=== PATIENT | male | born 1965 | race Caucasian/White ===

== ENCOUNTER 2024-12-17 11:46 | Emergency (ER) | payer OTHER, SELFPAY ==
[2024-12-17 11:52] VITALS: BP 149/79; PULSE 94; TEMP 37.3; O2SAT 97; BMI 25.8
--- NOTE | 2024-12-17 12:29 | XR_ITS ---
[facility] [place] [id number] Patient Name: MARGARITO STEPHENS MRN: [id number] date: 1965 Sex: M Assigned Patient Location: ER Current Patient Location: ED.MAIN Accession/Order Number: [id number] Exam Date: 12/17/2024 12:25 Report Date: 12/17/2024 12:52 At the request of: VIDHYA MEMBRENO Procedure: XR wrist RT min 3V RIGHT WRIST - 3 views COMPARISON: None CLINICAL DATA: Right wrist pain radiating to the thumb for the past few days. No injury. AP, lateral and oblique views were obtained. There is no acute fracture or dislocation. There is minor degenerative change at the first carpal metacarpal joint. No soft tissue swelling is seen. There is atherosclerotic disease involving vessels along the volar aspect of the distal forearm and wrist. XR/XR wrist RT min 3V IMPRESSION: NO ACUTE BONY FINDINGS. Impression dictated by: Arabella Farmer M.D. 12/17/2024 12:52 PM Dictation Location: [place] Electronically authenticated by: [id number] Y Date: 12/17/2024 12:52
[2024-12-17] MEDS: PIPERACILLIN SODIUM/TAZOBACTAM 4.5 GM in 0.9 % SODIUM CHLORIDE 50 ML IV (12:34)
--- NOTE | 2024-12-17 12:34 | ED_ITS ---
HPI - Extremity Problem General Chief complaint: Extremity Problem, Nontraumatic Stated complaint: POST OP COMPLICATION REDNESS Time Seen by Provider: 12/17/24 11:57 Source: patient Mode of arrival: walk-in Limitations: no limitations History of Present Illness HPI Narrative: 59-year-old male with history of insulin-dependent type 2 diabetes presents to the ED for right wrist pain. He underwent carpal tunnel surgery in May of this year without complications. He reports that two days ago, while lying in bed, he developed an achy pain in his right wrist rated 6/10, which has persisted. He also noticed redness in the area, which appears to be progressing proximally. He did states it was worse yesterday, the redness has decreased in size since yesterday. He denies pain at the surgical site, pain in the hand or fingers, or any history of trauma, insect bite, or abrasion. He has mild swelling localized to the anterior wrist but no swelling of the fingers. He is able to move his fingers through full ROM. He has not taken medication for pain. No fever, chills, or systemic symptoms reported. He contacted his surgeon?s office today but was referred to the ED for further evaluation. I have reviewed the past medical, family, and social history sections including the medications and allergies listed in the above medical record. This chart has been completed using [employer] Electronically signed by: Davis Addison Related Data Home Medications ?Medication ?Instructions ?Recorded ?Confirmed atorvastatin 20 mg tablet 20 mg PO DAILY 12/17/2411/27 empagliflozin 25 mg tablet 25 mg PO DAILY 12/17/24 (Jardiance) gabapentin 300 mg capsule 600 mg PO BID 12/17/2412/17 hydrocodone 5 mg-acetaminophen 325 1 tab PO BID 12/17/24 mg tablet insulin glargine-yfgn 100 unit/mL 25 unit subcut BID 0 12/17/24 12/17/24 subcutaneous solution (Semglee (insulin glargine-yfgn)) lisinopril 20 mg tablet 20 mg PO BID 12/17/24 metformin 500 mg tablet 500 mg PO BID 12/17/2412/17 methocarbamol 500 mg tablet 500 mg PO BID 12/17/24 Previous Rx's ?Medication ?Instructions ?Recorded sulfamethoxazole 800 1 tab PO BID 10 days #20 tab s 12/17/24 mg-trimethoprim 160 mg tablet (Bactrim DS) Allergies Allergy/AdvReac Type Severity Reaction Status Date / Time No Known Drug Allergies Allergy Verified 12/17/24 11:51 PFSH PFSH Social History Little interest or pleasure in doing things: not at all Feeling down, depressed, or hopeless: not at all Exam Narrative Exam Narrative: Exam: * Vitals: BP 149/79, HR 94, Temp 99.1?F, RR 16, SpO? 97% * General: Patient alert, non-toxic, no acute distress. * Right Wrist/Forearm: * Localized erythema approximately 5 ? 2 cm on the wrist, proximal to the hand * Linear erythematous streak ~3 cm extending proximally along anterior forearm * Mild anterior wrist swelling * No pain with wrist extension * No fluctuance or open wound * Able to move through all hand movements both passive and active. * No fluctuance, no open wounds * No redness or swelling involving hand or digits * No Kanavel signs (no fusiform swelling, no pain with passive extension of digits, no tenderness along tendon sheath) * Neurovascularly intact distally * Other Systems: No systemic rash, lungs clear, heart regular Constitutional Vital Signs, click to edit/add: Last Vital Signs Temp 99.1 F 12/17/24 11:52 Pulse 94 H 12/17/24 11:52 Resp 16 12/17/24 11:52 BP 149/79 H 12/17/24 11:52 Pulse Ox 97 12/17/24 11:52 Course Consultations Consultation #1: Contacted Dr. Mora office and discussed with Chuy Alonso due to her absence. Discussed appearance as well as labs. It does not look like it goes into the hand. He will see Dr. Mora tomorrow in the office. He recommended starting Bactrim. Time: 13:33 Vital Signs Vital signs: Vital Signs Temperature 99.1 F 12/17/24 11:52 Pulse Rate 94 H 12/17/24 11:52 Respiratory Rate 16 12/17/24 11:52 Blood Pressure 149/79 H 12/17/24 11:52 Pulse Oximetry 97 12/17/24 11:52 Temperature 99.1 F 12/17/24 11:52 Pulse Rate 94 H 12/17/24 11:52 Respiratory Rate 16 12/17/24 11:52 Blood Pressure 149/79 H 12/17/24 11:52 Pulse Oximetry 97 12/17/24 11:52 MDM - Extremity (Nontraumatic) MDM Narrative Medical decision making narrative: 55-year-old male with cellulitis of the volar wrist with CT confirming soft tissue swelling and edema within the flexor compartment but no abscess or drainable collection. Neurovascularly intact, no evidence of tenosynovitis or septic arthritis. Normal WBC, mildly elevated inflammatory markers. Patient is afebrile and non-toxic. Presentation most consistent with cellulitis without abscess. Treated with IV antibiotics in ED. Will start oral antibiotics (e.g., Bactrim or alternative per local guidelines) and arrange close outpatient follow-up. Strict return precautions provided for worsening pain, swelling, fever, spreading erythema, or decreased finger motion (concern for flexor tenosynovitis). Dr. Pal also evaluated the patient and we discussed disposition and plan. Differential Diagnosis: * Cellulitis with early lymphangitic spread (most likely) * Septic arthritis (less likely ? no joint effusion, ROM preserved, afebrile) * Flexor tenosynovitis (unlikely ? no Kanavel signs, no finger swelling) * Postoperative infection (unlikely ? surgery site distant, no hardware involvement) * Superficial thrombophlebitis (no palpable cord, erythema not localized to vein) * Gout/pseudogout flare (less likely ? no warmth, no effusion, gradual onset) * Abscess (ruled out by CT) * Gout/pseudogout flare (less likely, no crystals or effusion) * Superficial thrombophlebitis (no palpable cord, no vein involvement) Lab Data Labs: Lab Results 12/17/24 Range/Units 12:24 WBC 9.3 (4.0-11.0) 10^3/uL RBC 4.78 (4.70-6.10) 10^6/uL Hgb 14.6 (14.0-18.0) g/dL Hct 42.3 (42.0-54.0) % MCV 88.5 (80.0-94.0) fL MCH 30.5 (25.9-34.0) pg MCHC 34.5 (29.9-35.2) g/dL RDW 12.0 (11.0-15.0) % Plt Count 304 (150-450) 10^3/uL MPV 9.2 L (9.5-13.5) fL Neut % (Auto) 69.6 (43.0-75.0) % Lymph % (Auto) 20.2 L (20.5-60.0) % [place] % (Auto) 8.5 (1.7-12.0) % Eos % (Auto) 1.0 (0.9-7.0) % Baso % (Auto) 0.5 (0.2-2.0) % Neut # (Auto) 6.5 (1.4-6.5) 10^3/uL Lymph # (Auto) 1.9 (1.2-3.8) 10^3/uL [place] # (Auto) 0.8 (0.3-0.8) 10^3/uL Eos # (Auto) 0.1 (0.0-0.7) 10^3/uL Baso # (Auto) 0.1 (0.0-0.1) 10^3/uL Abs Immat Gran (auto) 0.02 (0.00-0.03) 10^3/uL Imm/Tot Granulo (auto) 0.2 (0.0-0.5) % ESR 46 H (<=20) mm/hr Sodium 140 (136-145) mmol/L Potassium 4.0 (3.5-5.1) mmol/L Chloride 105 (98-107) mmol/L Carbon Dioxide 27.0 (21.0-32.0) mmol/L Anion Gap 12.0 BUN 25.0 H (7.0-18.0) mg/dL Creatinine 1.14 (0.70-1.30) mg/dL Est GFR ( Amer) >60 (>=60 mL/min/1.73m^2) Est GFR (Non-Af Amer) >60 (>=60 mL/min/1.73m^2) BUN/Creatinine Ratio 21.9 Glucose 290 H (74-106) mg/dL Calcium 9.3 (8.5-10.1) mg/dL C-Reactive Protein 1.10 H (<=0.50) mg/dL Discharge Plan Discharge Chief Complaint: Extremity Problem, Nontraumatic Clinical Impression: Cellulitis Patient Disposition: Home, Self-Care Time of Disposition Decision: 15:30 Condition: Good Prescriptions / Home Meds: New sulfamethoxazole-trimethoprim [Bactrim DS] 800-160 mg tablet 1 tab PO BID 10 Days Qty: 20 0RF No Action atorvastatin 20 mg tablet 20 mg PO DAILY Jardiance 25 mg tablet 25 mg PO DAILY gabapentin 300 mg capsule 600 mg PO BID hydrocodone-acetaminophen 5-325 mg tablet 1 tab PO BID lisinopril 20 mg tablet 20 mg PO BID metformin 500 mg tablet 500 mg PO BID methocarbamol 500 mg tablet 500 mg PO BID insulin glargine-yfgn [Semglee(insulin glargine-yfgn)] 100 unit/mL solution 25 unit SUBCUT BID Print Language: Montenegrin Instructions: Cellulitis (ED) Referrals: AZAEL MORA [Physician, Orthopedics] - As soon as possible Referral Note: Tomorrow as discussed with office. MARGARITO BRICEÑO [Primary Care Provider, Family Practice] - 1 week Discharge Date/Time: 12/17/24 15:53
[2024-12-17 12:39] LABS: Hematocrit 42.3 % (42.0-54.0); Hemoglobin 14.6 g/dL (14.0-18.0); Immature Granulocytes Abs Auto 0.02 10^3/uL (0.00-0.03); Immature Granulocytes Pct Auto 0.2 % (0.0-0.5); Lymphocytes Absolute Auto 1.9 10^3/uL (1.2-3.8); Mean Corpuscular HGB Conc 34.5 g/dL (29.9-35.2); Mean Corpuscular Hemoglobin 30.5 pg (25.9-34.0); Mean Corpuscular Volume 88.5 fL (80.0-94.0); Platelet Count 304 10^3/uL (150-450); Red Blood Count 4.78 10^6/uL (4.70-6.10); White Blood Count 9.3 10^3/uL (4.0-11.0)
[2024-12-17 12:50] LABS: Anion Gap 12.0; Blood Urea Nitrogen 25.0 mg/dL (7.0-18.0); Calcium 9.3 mg/dL (8.5-10.1); Carbon Dioxide 27.0 mmol/L (21.0-32.0); Chloride 105 mmol/L (98-107); Estimated GFR (African America >60 (>=60 mL/min/1.73m^2); Estimated GFR (Non-African Ame >60 (>=60 mL/min/1.73m^2); Glucose 290 mg/dL (74-106); Potassium 4.0 mmol/L (3.5-5.1); Sodium 140 mmol/L (136-145)
--- NOTE | 2024-12-17 13:53 | CT_ITS ---
The [address] [address] Patient Name: MARGARITO STEPHENS MRN: [id number] date: 1965 Sex: M Assigned Patient Location: ER Current Patient Location: ER Accession/Order Number: [id number] Exam Date: 12/17/2024 14:12 Report Date: 12/17/2024 15:04 At the request of: VIDHYA MEMBRENO Procedure: CT wrist RT w con CT wrist RT w con 12/17/2024 2:24 PM SIGNS AND SYMPTOMS: ^r/o deep infection/abscess. Recent carpal tunnel surgery \S.br\ CONTRAST: 100 mL of intravenous Omnipaque 300 TECHNIQUE: Multiple detector CT axial slices of the right wrist were obtained with IV contrast. Multiplanar reformats were performed and viewed on a separate workstation and reviewed to further define anatomy and possible pathology. CT was performed with one or more of the following dose reduction techniques: Automated exposure control, adjustment of the mA and/or kV according to patient size, or use of iterative reconstruction technique. COMPARISON: 12/17/2024 FINDINGS: Degenerative changes are noted in the metacarpophalangeal joints, greatest at the base of the third metacarpal with bony spurring extending dorsally. Subcortical cystic changes noted scaphoid. Bony spurring is noted along the radial styloid. Intercarpal joint spaces are otherwise preserved. The carpal rows and carpal metacarpal junctions are otherwise preserved. Soft tissue swelling is noted along the volar aspect of the wrist overlying the flexor retinaculum suspicious for cellulitis. No well demarcated peripherally enhancing fluid collection to suggest the presence of an abscess. Edema is noted within the flexor compartment. Vascular calcifications are present CT/CT wrist RT w con IMPRESSION: Soft tissue swelling is noted along the volar aspect of the wrist overlying the flexor retinaculum suspicious for cellulitis. No well demarcated peripherally enhancing fluid collection to suggest the presence of an abscess. Edema is noted within the flexor compartment. Additional degenerative changes are noted as above. Impression dictated by: Anuj Anderson M.D. 12/17/2024 3:04 PM Dictation Location: [place] [id number] Electronically authenticated by: [id number] Y Date: 12/17/2024 15:04
== END 2024-12-17 15:53 | disposition home or self-care (01) ==
PROVIDERS: Physician Assistant; Emergency Provider Emergency Medicine; PCP Family Medicine
DX: L03.113 Cellulitis of right upper limb (principal); E11.9 Type 2 diabetes mellitus without complications; Z79.4 Long term (current) use of insulin; Z79.84 Long term (current) use of oral hypoglycemic drugs
CPT/HCPCS: 36415; 73110; 73201; 76376; 80048; 85025; 85652; 86140; 96365; 99285; J2543; Q9967